=== PATIENT | female | born 1975 | race Two or more races ===

== ENCOUNTER 2017-02-24 11:47 | Emergency (ER) | payer SELFPAY ==
[~2017-02-24] VITALS: Ht 160 cm; Wt 63.5 kg
[2017-02-24 15:28] VITALS: BP 125/85
== END 2017-02-24 15:28 | disposition home or self-care (01) ==
LOC: ER 11:53
DX: S01.411A Laceration without foreign body of right cheek and temporomandibular area, initial encounter (principal); W50.3XXA Accidental bite by another person, initial encounter; Y93.89 Activity, other specified; Y92.89 Other specified places as the place of occurrence of the external cause; Y99.9 Unspecified external cause status
CPT/HCPCS: 12011; 99283; A4606; Z7610

== ENCOUNTER 2017-02-27 10:55 | Emergency (ER) | payer SELFPAY ==
[~2017-02-27] VITALS: Ht 160 cm; Wt 63.5 kg
[2017-02-27 11:09] VITALS: BP 133/65
== END 2017-02-27 11:26 | disposition home or self-care (01) ==
LOC: ER 10:56
DX: S01.411D Laceration without foreign body of right cheek and temporomandibular area, subsequent encounter (principal)
CPT/HCPCS: A4606; Z7502; Z7610

== ENCOUNTER 2017-02-28 21:59 | Emergency (ER) | payer SELFPAY ==
[~2017-02-28] VITALS: Ht 160 cm; Wt 63.5 kg
[2017-02-28 23:02] VITALS: BP 125/76
== END 2017-02-28 23:43 | disposition home or self-care (01) ==
LOC: ER 21:59
DX: S01.411D Laceration without foreign body of right cheek and temporomandibular area, subsequent encounter (principal)
CPT/HCPCS: 99281; A4606; Z7610; Z7502